=== PATIENT | female | born 1975 | race Caucasian/White ===

== ENCOUNTER 2022-07-17 08:05 | Outpatient (REF) | payer MEDICAID, SELFPAY ==
[2022-07-17 15:39] LABS: CT PCR NOT DETECTED (Not Detect.); NG PCR NOT DETECTED (Not Detect.)
[2022-07-20 03:36] LABS: HPV mRNA E6/E7 rflx Not Detected (Not Detected)
== END 2022-07-17 08:06 | disposition home or self-care (01) ==
LOC: HO.LNP 08:05
PROVIDERS: PCP Internal Medicine; Visit Provider Obstetrics & Gynecology
DX: Z30.433 Encounter for removal and reinsertion of intrauterine contraceptive device (principal); Z12.4 Encounter for screening for malignant neoplasm of cervix; Z11.51 Encounter for screening for human papillomavirus (HPV)
CPT/HCPCS: 58300; 58301; 87491; 87591; 87624; 88142; J7298

== ENCOUNTER → 2022-08-15 08:34 | Outpatient (BNVA) | payer MEDICAID, SELFPAY | PROVIDERS: PCP Internal Medicine; Visit Provider Obstetrics & Gynecology | DX: Z30.431 Encounter for routine checking of intrauterine contraceptive device (principal) | CPT/HCPCS: 81025; 99212 ==

== ENCOUNTER 2022-08-24 10:58 | Outpatient (REF) | payer MEDICAID, SELFPAY ==
--- NOTE | ~2022-08-24 | MM_ITS ---
EXAMINATION: MM SCREENING DIGITAL BREAST TOMOSYNTHESIS, BILATERAL CLINICAL INFORMATION: Screening. Asymptomatic. Age 47. The lifetime risk of breast cancer based on the Tyrer-Cuzick Model is 11%. COMPARISON: None. TECHNIQUE: Digital breast tomosynthesis is performed in both the craniocaudal and mediolateral oblique views along with computer-aided detection (CAD). Synthesized 2D images are generated from the tomosynthesis. FINDINGS: The breasts are heterogeneously dense, which may obscure small masses (ACR BI-RADS breast composition Category c). There is inhomogeneous parenchymal pattern. No significant mass, architectural abnormality, or abnormal calcifications. No skin thickening or coarsening of the Federico's ligaments. The axilla are unremarkable. MM/MM tomosynthesis screening BI IMPRESSION: No mammographic evidence of malignancy. ASSESSMENT: BI-RADS 2: Benign RECOMMENDATION: Routine annual mammography screening. This patient's information was entered into a reminder system with a target due date for their next mammogram.
== END 2022-08-24 10:59 | disposition home or self-care (01) ==
LOC: HO.MAMMO 10:58
PROVIDERS: PCP Internal Medicine; Visit Provider Obstetrics & Gynecology
DX: Z12.31 Encounter for screening mammogram for malignant neoplasm of breast (principal)
CPT/HCPCS: 77063; 77067

== ENCOUNTER 2023-10-03 11:35 | Outpatient (REF) | payer OTHER, SELFPAY ==
--- NOTE | ~2023-10-03 | MM_ITS ---
EXAMINATION: MM SCREENING DIGITAL BREAST TOMOSYNTHESIS, BILATERAL CLINICAL INFORMATION: Screening. Asymptomatic. COMPARISON: Mammography: This study is compared with prior exams dating back to 2021. TECHNIQUE: Digital breast tomosynthesis is performed in both the craniocaudal and mediolateral oblique views along with computer-aided detection (CAD). Synthesized 2D images are generated from the tomosynthesis. FINDINGS: The breasts are heterogeneously dense, which may obscure small masses (ACR BI-RADS breast composition Category c). In the lateral aspect of the deep third of the left breast, there is an asymmetry which warrants additional mammographic and targeted sonographic evaluation. The remainder of the left breast is normal. In the right breast, there are no significant masses, abnormal calcifications, or other abnormalities. MM/MM tomosynthesis screening BI IMPRESSION: Asymmetry of the left breast warrants additional mammographic and targeted sonographic evaluation. No mammographic signs of malignancy right breast. ASSESSMENT: BI-RADS BI-RADS 0 - Incomplete: Needs additional Imaging. RECOMMENDATION: 1. Additional views of the left breast. 2. Targeted ultrasound if warranted after review of the additional views. 3. Radiology department staff will contact the patient for additional imaging. Additional Imaging required This examination should not preclude the clinical evaluation of a suspicious palpable abnormality. This patient's information was entered into a reminder system with a target due date for their next mammogram.
== END 2023-10-03 11:36 | disposition home or self-care (01) ==
LOC: HO.MAMMO 11:35
PROVIDERS: PCP Internal Medicine; Visit Provider Internal Medicine
DX: Z12.31 Encounter for screening mammogram for malignant neoplasm of breast (principal)
CPT/HCPCS: 77063; 77067

== ENCOUNTER → 2023-10-03 12:00 | Outpatient (BNV) | payer OTHER, SELFPAY | PROVIDERS: PCP Internal Medicine; Visit Provider Radiology Diagnostic Radiology | DX: Z12.31 Encounter for screening mammogram for malignant neoplasm of breast (principal) | CPT/HCPCS: 77063; 77067 ==

== ENCOUNTER 2023-10-28 13:49 | Outpatient (REF) | payer OTHER, SELFPAY ==
--- NOTE | ~2023-10-28 | MM_ITS ---
EXAMINATION: MM DIAGNOSTIC DIGITAL BREAST TOMOSYNTHESIS, LEFT US BREAST LIMITED, LEFT MAMMOGRAPHY: CLINICAL INFORMATION: Evaluate focal asymmetry left breast upper outer quadrant, posterior one third seen on screening exam. COMPARISON: Mammography: 10/03/2023, 08/24/2022. TECHNIQUE: Digital left breast tomosynthesis is performed in the following views: Full-field 3-D digital left mediolateral view, 3-D spot compression left CC view, and left MLO view x3. FINDINGS: The breasts are heterogeneously dense, which may obscure small masses (ACR BI-RADS breast composition Category c). Compression views demonstrate the presence of a 1.7 cm oval circumscribed mass in the upper outer left breast approximately 8 cm from the nipple, partially obscured by dense tissue on the MLO view and ML view. On ultrasound this proved to be a simple cyst. In the approximate 8:00 position of the left breast, there is a 5 mm oval mass, circumscribed margins, which proved to be a mildly complicated cyst on ultrasound. No new suspicious findings left breast. ULTRASOUND: CLINICAL INFORMATION: As above. COMPARISON: No prior ultrasound. TECHNIQUE: Targeted sonographic evaluation left breast was performed using a high frequency linear transducer. Attention was given to the 2:00 axis, in the 8:00 axis in the region of the above mentioned circumscribed masses. Selected archived documentation. FINDINGS: LEFT BREAST: -The 2:00 axis, 6 cm from the nipple, there is a 1.5 x 1.1 x 1.8 cm simple cyst, correlating to the circumscribed mass seen on mammography. No further follow-up required. -In the 8:00 axis, 4 cm from the nipple, there is a 4 x 3 x 3 mm minimally complicated cyst with through transmission and a few scant internal echoes, no internal color Doppler flow, and circumscribed border, probably benign. Six-month interval follow-up targeted left breast ultrasound recommended to ensure stability. No additional abnormal left breast ultrasonographic findings. MM/MM tomosynthesis added views L IMPRESSION: There are no findings suspicious for malignancy in the left breast. There is a left breast simple cyst in the 2:00 axis measuring up to 1.8 cm. This is benign. In the left breast 8:00 axis, 4 cm from the nipple, there is a minimally complicated cyst measuring 4 mm, probably benign. Six-month interval follow-up targeted left breast ultrasound recommended to ensure stability. OVERALL ASSESSMENT: Mammography: BI-RADS 3 - Probably benign finding(s) - 6 month follow-up suggested Ultrasound: BI-RADS 3 - Probably benign finding(s) - 6 month follow-up suggested RECOMMENDATION: 6 Month F/U Results were provided to the patient at time of visit by the technologist. This patient's information was entered into a reminder system with a target due date for their next mammogram.
== END 2023-10-28 13:50 | disposition home or self-care (01) ==
LOC: HO.MAMMO 13:49
PROVIDERS: PCP Internal Medicine; Visit Provider Internal Medicine
DX: N64.89 Other specified disorders of breast (principal)
CPT/HCPCS: 76642; 77061; 77065

== ENCOUNTER → 2023-10-28 14:00 | Outpatient (BNV) | payer OTHER, SELFPAY | PROVIDERS: PCP Internal Medicine; Visit Provider Radiology Diagnostic Radiology | DX: R92.8 Other abnormal and inconclusive findings on diagnostic imaging of breast (principal) | CPT/HCPCS: 76642; 77061; 77065 ==

== ENCOUNTER 2024-03-30 10:40 | Outpatient (REF) | payer OTHER, SELFPAY ==
--- NOTE | ~2024-03-30 | US_ITS ---
EXAMINATION: US DIAGNOSTIC ULTRASOUND BREAST, LEFT CLINICAL INFORMATION: 6 month Follow-up for small mass versus complicated cyst left breast 8:00 axis, 4 cm from the nipple.. COMPARISON: 10/28/2023 mammography and diagnostic left ultrasound. TECHNIQUE: Ultrasound of the left breast is performed with real-time galvez scale imaging and color Doppler. Attention was given to the 8:00 axis, in the region of previously characterized complicated cyst versus small mass. FINDINGS: In the 8:00 axis, 4 cm from the nipple, there is an unchanged 4 x 3 x 3 mm minimally complicated cyst versus solid mass (possible fibroadenoma) through transmission and a few scant internal echoes, no internal color Doppler flow, and circumscribed border, entirely unchanged, and thus remains probably benign. Six-month interval follow-up targeted left breast ultrasound recommended to ensure continued stability. No additional abnormal left breast ultrasonographic findings. Results are discussed with the patient at time of visit. US/US breast LT limited mamm only IMPRESSION: In the left breast 8:00 axis, 4 cm from the nipple, there is a stable mildly complicated cyst versus solid mass measuring 4 mm, remaining probably benign. Additional (second) six-month interval follow-up targeted left breast ultrasound recommended to ensure stability. Goal is to achieve a two-year stability to establish benignity. ASSESSMENT: BI-RADS 3 - Probably benign finding(s) - 6 month follow-up suggested RECOMMENDATION: 6 Month F/U This patient's information was entered into a reminder system with a target due date for their next mammogram.
== END 2024-03-30 10:41 | disposition home or self-care (01) ==
LOC: HO.MAMMO 10:40
PROVIDERS: PCP Internal Medicine; Visit Provider Internal Medicine
DX: N60.02 Solitary cyst of left breast (principal)
CPT/HCPCS: 76642

== ENCOUNTER → 2024-03-30 11:00 | Outpatient (BNV) | payer OTHER, SELFPAY | PROVIDERS: PCP Internal Medicine; Visit Provider Radiology Diagnostic Radiology | DX: N63.24 Unspecified lump in the left breast, lower inner quadrant (principal) | CPT/HCPCS: 76642 ==

== ENCOUNTER 2024-11-02 08:57 | Outpatient (REF) | payer OTHER, SELFPAY ==
--- NOTE | ~2024-11-02 | MM_ITS ---
EXAMINATION: MM DIAGNOSTIC DIGITAL BREAST TOMOSYNTHESIS, BILATERAL Limited left breast ultrasound. CLINICAL INFORMATION: 1 year follow-up for solid mass versus complicated cyst at 8:00 8 cm from the nipple in the left breast. COMPARISON: Mammography: Comparison is made with relevant prior exams. TECHNIQUE: Digital breast mammography with tomosynthesis is performed in both the craniocaudal and mediolateral oblique views along with computer-aided detection (CAD). Limited left breast ultrasound. FINDINGS: The breasts are heterogeneously dense, which may obscure small masses (ACR BI-RADS breast composition Category c). There are no significant masses, abnormal calcifications, or other abnormalities. Targeted color Doppler ultrasound in the left breast at 8:00 8 cm from nipple again demonstrates a hypoechoic oval circumscribed solid mass versus complicated cyst measuring 2 x 3 x 3 mm not significantly changed from prior ultrasounds dating back for one year. Results are provided to the patient at time of visit by the technologist. MM/MM tomosynthesis diagnostic BI IMPRESSION: Left: Solid mass versus complicated cyst in the left breast at 8:00 not significantly changed from prior ultrasounds dating back for one year. Recommend one-year follow-up diagnostic ultrasound to demonstrate 2 years of stability. Right: Negative. ASSESSMENT: BI-RADS BI-RADS 3 - Probably benign finding(s) - 12 month follow-up suggested RECOMMENDATION: 12 month diagnostic follow up This patient's information was entered into a reminder system with a target due date for their next mammogram. Electronically signed by: Shirlene Wilcox DO 11/02/2024 10:12 AM [facility]
== END 2024-11-02 08:58 | disposition home or self-care (01) ==
LOC: HO.MAMMO 08:57
PROVIDERS: PCP Internal Medicine; Visit Provider Internal Medicine
DX: N63.24 Unspecified lump in the left breast, lower inner quadrant (principal)
CPT/HCPCS: 76642; 77062; 77066

== ENCOUNTER → 2024-11-02 09:00 | Outpatient (BNV) | payer OTHER, SELFPAY | PROVIDERS: PCP Internal Medicine; Visit Provider Internal Medicine | DX: N60.82 Other benign mammary dysplasias of left breast (principal); R92.333 Mammographic heterogeneous density, bilateral breasts | CPT/HCPCS: 76642; 77062; 77066 ==